=== PATIENT | male | born 1940 | race Caucasian/White ===

== ENCOUNTER 2017-07-14 15:11 | Inpatient (IN) ==
[2017-07-14] MEDS ORDERED: Lacri-Lube 3.5 GM TUBE BOTH EYES PRN (17:19)
[2017-07-14] MEDS ORDERED: *HR* Midazolam HCl 5 MG/5 ML VIAL IVP ONE ×2 (17:24→18:47)
[2017-07-14] MEDS ORDERED: *HR* FentaNYL (PF) 100 MCG/2 ML VIAL ONE (17:25)
--- NOTE | 2017-07-14 17:48 | Pulmonology History & Physical ---
<Robert Doran - Last Filed: 07/14/17 17:48> Date of Encounter: 07/14/17 Time of Encounter: 17:41 Assessment and Plan (1) Acute and chronic respiratory failure with hypercapnia Current visit: Yes Status: Acute Patient transferred from NH sedated and intubated. Patient was found to be septic. - closely monitor vitals - CMP, CBC, lactate, coag - blood, urine, and sputum cx ordered - started vanc/zosyn renal dosing - versed/fentanyl for sedation (2) Sepsis Current visit: Yes Status: Acute Patient was septic at NH. Currently patient if vitally stable. - Will closely monitor vitals, CBC, and lactate - started vanc/zosyn renal dosing Qualifiers: Qualified Code(s): A41.9 - Sepsis, unspecified organism (3) Pyelonephritis Current visit: Yes Status: Acute Multiday increase urine urgency w/o burning and difficulty emptying. Patient was possibly altered. - UA w/ cultures (4) Osteomyelitis Current visit: Yes Status: Acute chronic osteomyelitis. patient AMA from NH during treatment for MSSA. Currently wound does not appear clinically infected. - started vanc/zosyn renal dosing. Qualifiers: Qualified Code(s): M86.9 - Osteomyelitis, unspecified (5) Chronic kidney disease (CKD) Current visit: Yes Status: Acute Patient known CKD4, at NH Cr 4-5. - avoid nephrotoxins - renal dosed Rx - will closely follow Cr Qualifiers: Qualified Code(s): N18.4 - Chronic kidney disease, stage 4 (severe) (6) Obesity Current visit: Yes Status: Acute BMI >40 Qualifiers: Qualified Code(s): E66.9 - Obesity, unspecified (7) Essential hypertension Current visit: Yes Status: Acute Will closely follow BP (8) Diabetes Current visit: No Status: Acute on admission Glu 349. 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 HFpEF. currently on heparin for DVT Qualifiers: Qualified Code(s): I50.30 - Unspecified diastolic (congestive) heart failure (11) DVT prophylaxis Current visit: No Status: Acute subQ heparin History of Present Illness Chief complaint: Sepsis/ARDS HPI: Mr. Perez is a 76 year old male transferred from NH to ICU for acute on chronic respiratory failure hypercapnic with sepsis source pyelonephritis or possibly left lower leg osteomyelitis currently intubated w/ hx of acute lower urinary tract infection, mild non-proliferative diabetic retinopathy, chronic constipation, chronic osteomyelitis of lower leg, essential hypertension, COPD with a possible lung mass found at [facility], dystolic heart failure HFpEF, CKD4, obesity, Diabetes, and tremor. Patient presented to his primary care physician on 07/11/17 with increased redness and drainage from his chronic right leg wound. Patient was then admitted to NH and was started on IV antibiotics. In February patient was admitted to NH for MSSA of osteomyelitis but left AMA before finishing treatment. According to chart review, patients mental baseline is lethargic. As well, [facility] patient reports increased urine urgency without burning, and difficulty emptying. Patient has a history of difficutlly emptying and is on terazosin. According to chart review from NH, patient denied Patient is currently intubated and sedate. Unable to collect history. Past Med Surg Social Fam HX - Past Medical History Medical history: diabetes, GI bleed, hyperlipidemia, hypertension Psychiatric history: no psych history - Past Surgical History Surgical History: cholecystectomy - Social History Smoking Status: Former smoker Smokeless Tobacco Status: No Alcohol use: none Drug use: none Medications and Allergies Aspirin 81 mg PO DAILY 09/02/16 [History] Carboxymethylcellulose Sodium [Refresh Tears] 1 drop OP TID 09/02/16 [History] Cholecalciferol (D-3) [Vitamin D] 1,000 unit PO DAILY 09/02/16 [History] Cranberry 400 mg PO DAILY 09/02/16 [History] Diltiazem HCl [Diltiazem 24Hr ER] 300 mg PO DAILY 09/02/16 [History] Docusate Calcium [Kaopectate] 240 mg PO AD PRN 09/02/16 [History] Furosemide [Lasix] 20 mg PO DAILY 09/02/16 [History] Insulin ASPART [Novolog Flexpen] 24 unit SQ TIDWM 09/02/16 [History] Insulin Glargine,Hum.rec.anlog [Lantus Solostar] 30 unit SQ BID 09/02/16 [ History] Isosorbide MONOnitrate (24 HR) [Imdur] 30 mg PO DAILY 09/02/16 [History] L. Acidophilus/Pectin, Lyman [Acidophilus Probiotic Capsule] 1 cap PO BID 09/02 [History] Metoprolol XL (24 HR) Succ [Toprol Xl] 25 mg PO DAILY 09/02/16 [History] Naproxen Sodium [Aleve] 440 mg PO AD PRN 09/02/16 [History] Omeprazole [PriLOSEC] 20 mg PO DAILY 09/02/16 [History] Pravastatin Sodium [Pravachol] 40 mg PO DAILY 09/02/16 [History] Sertraline [Zoloft] 100 mg PO DAILY 09/02/16 [History] Terazosin HCl 2 mg PO DAILY 09/02/16 [History] hydrALAZINE [HydrALAZINE] 20 mg PO TID 09/02/16 [History] 3 Allergy/AdvReac Type Severity Reaction Status Date / Time gabapentin Allergy See Verified 09/02/16 11:32 Comments linezolid Allergy See Verified 09/02/16 11:32 Comments ROS unobtainable: due to endotracheal tube All Systems: A 10-system review of systems was performed and is negative for pertinent findings except as documented above in the HPI. Physical Examination General appearance: asleep Effort: other (non-labored but currently intubated) Auscultation: bilateral: wheezes Cardiovascular: irregular rhythm, murmur noted (right second intercostal space) Gastrointestinal: absent bowel sounds Extremities: no edema, other (unable to palpate pulses bilaterally radial, posterior tibial, dorsalis pedis) <Angel Diaz S - Last Filed: 07/14/17 20:20> Date of Encounter: 07/14/17 History of Present Illness HPI: Mr. Perez is a 76 year old male All Systems: A 10-system review of systems was performed and is negative for pertinent findings except as documented above in the HPI. Physical Examination Vital Signs: Vital Signs, Last 4 Hours Temp Pulse Resp BP Pulse Ox 07/14/17 19:43 20 120/70 91 07/14/17 19:00 75 20 120/70 92 07/14/17 18:00 78 20 118/71 90 07/14/17 17:31 16 93 07/14/17 17:29 78 92 07/14/17 17:05 97.2 F L 78 16 113/54 92 Results - Laboratory Findings CBC and BMP: 07/14/17 18:01 07/14/17 18:01 PT/INR, D-dimer PT 11.7 Seconds (9.4-12.1) 07/14/17 18:01 Abnormal lab findings: Abnormal lab results RBC 3.57 M/mcL (4.19-5.50) L 07/14/17 18:01 Hgb 10.1 g/dL (12.9-16.9) L 07/14/17 18:01 Hct 34.4 % (37.5-50.1) L 07/14/17 18:01 MCHC 29.4 g/dL (31.6-35.5) L 07/14/17 18:01 Neutrophils # 9.4 K/mcL (1.6-8.9) H 07/14/17 18:01 Lymphocytes # 0.2 K/mcL (0.6-4.6) L 07/14/17 18:01 Sodium 135 mEq/L (136-145) L 07/14/17 18:01 Potassium 5.6 mEq/L (3.5-4.5) H 07/14/17 18:01 BUN 39 mg/dL (8-26) H 07/14/17 18:01 Creatinine 4.69 mg/dL (0.72-1.25) H 07/14/17 18:01 Est GFR ( Amer) 15 (> 60) L 07/14/17 18:01 Est GFR (Non-Af Amer) 12 (> 60) L 07/14/17 18:01 Glucose 406 mg/dL (70-99) H 07/14/17 18:01 POC Glucose 349 (58-89) H 07/14/17 17:40 Calculated Osmolality 306 (280-300) H 07/14/17 18:01 Calcium 8.0 mg/dL (8.6-10.8) L 07/14/17 18:01 Troponin I 0.10 ng/mL (0-0.03) H* 07/14/17 18:01 Albumin 2.6 g/dL (3.5-5.0) L 07/14/17 18:01 Globulin 4.5 g/dL (2.4-3.5) H 07/14/17 18:01 Albumin/Globulin Ratio 0.6 (1.1-2.2) L 07/14/17 18:01 Urine Clarity Turbid (Clear) A 07/14/17 17:36 Urine Protein >=300 mg/dL (Neg-Trace) H 07/14/17 17:36 Urine Glucose (UA) 250 mg/dL (Normal) H 07/14/17 17:36 Urine Ketones Trace mg/dL (Negative) H 07/14/17 17:36 Urine Blood Large (Negative) H 07/14/17 17:36 Ur Leukocyte Esterase Moderate (Negative) H 07/14/17 17:36 Urine Microscopic RBC TNTC per hpf (0-3) H 07/14/17 17:36 Urine Microscopic WBC 5-15 per hpf (0-3) H 07/14/17 17:36 Ur Squamous Epith Cells Many per lpf (None-Few) H 07/14/17 17:36 Ur Culture Indicated? YES (NO) A 07/14/17 17:36 - Attending Attestation I saw the patient with the resident agree with History and Physical exam findings. Labs and Radiology were reviewed Ventilator data were reviewed adjusted TV and RR RUBBER DOWN: Patient is sedated not following commands NECK : No JVD appreciated Pulmonary : Patient is hypoxic and hypercarbic on ventilator probably due fluid overlaod vs ARDS in the setting of complicated UTI will start between 6 and 7 ml after repeat ABG will drop down to Tidal volume 6 ml low tidal volume strategy . Patient has lung nodule will address it after this acute episode . Cardiac : Hemodynamically stable , will trend troponins [facility] showed preserved EF with some dilated left atrium wont diurese now in the background of sepsis Nutrition/GI: Patient will be started on tube feeds PPI prophylaxis Renal : JAROD on chronic Kideny disease will follow electrolytes will consult renal Heme onc : Labs reviewed no acute issues . ID : Complicated UTI not improved with Zosyn concern for ESBL organisms will change to meropenem , will solano culture Endo: Diabetes on insulin Musculo skeletal / skin issues : Leg ulcer concern for osteomyelitis Disposition : Critically ill Code status: Full Code Family/POA:Son Spent 32 minutes of critical care time
[2017-07-14] MEDS ORDERED: Dextrose Gel 15 GM PO PRN ×2 (17:52)
[2017-07-14] MEDS ORDERED: D5% in Water 1,000 ML IVC PRN (17:52)
[2017-07-14] MEDS ORDERED: *HR* Dextrose 50 % in Water (Syg) 50 ML SYRINGE IVP PRN (17:52)
[2017-07-14] MEDS ORDERED: Vancomycin 1,500 MG in D5% in Water 250 ML IVPB SCH (18:00)
[2017-07-14] MEDS ORDERED: Piperacillin/Tazobactam 3.375 GM in D5% in Water (Mini-Bag+) 100 ML IVPB SCH ×2 (18:00→19:00)
[2017-07-14] MEDS ORDERED: Vancomycin 2,000 MG in D5% in Water 500 ML IVPB ONE (18:00)
[2017-07-14 18:22] LABS: Monocytes % 3.5 %
[2017-07-14 18:31] LABS: Albumin 2.6 g/dL (3.5-5.0); Albumin/Globulin Ratio 0.6 (1.1-2.2); Bilirubin,Total 0.7 mg/dL (0.2-1.2); Globulin 4.5 g/dL (2.4-3.5); Potassium 5.6 mEq/L (3.5-4.5); Total Protein 7.1 g/dL (6.0-8.3)
[2017-07-14 18:35] LABS: Basophils % 0.1 %; Hematocrit 34.4 % (37.5-50.1); Hemoglobin 10.1 g/dL (12.9-16.9); INR 1.1; Immature Granulocytes % 0.4 % (0-4); Lymphocytes # 0.2 K/mcL (0.6-4.6); Mean Corpuscular HGB Conc 29.4 g/dL (31.6-35.5); Mean Corpuscular Hemoglobin 28.3 pg (28.0-33.3); Mean Corpuscular Volume 96.4 fL (83.0-100.0); Mean Platelet Volume 10.7 fL (9.4-12.4); Monocytes # 0.4 K/mcL (0.0-1.3); Neutrophils # 9.4 K/mcL (1.6-8.9); Platelet Count 166 K/mcL (140-400); Prothrombin Time 11.7 Seconds (9.4-12.1); Red Blood Count 3.57 M/mcL (4.19-5.50); Red Cell Distribution Width 14.2 % (11.5-14.5)
[2017-07-14] MEDS ORDERED: *HR* FentaNYL (PF) 100 MCG/2 ML VIAL IVP ONE (18:47)
[2017-07-14] MEDS: FentaNYL (PF) 1,000 MCG in 0.9 % Sodium Chloride 80 ML IVC SCH (18:49)
[2017-07-14] MEDS: Insulin LISPRO 300 UNITS/3 ML VIAL SQ SCH (18:58)
[2017-07-14 19:23] LABS: Bilirubin,Urine Negative (Negative); Blood,Urine Large (Negative); Clarity,Urine Turbid (Clear); Color,Urine Yellow (Yellow); Glucose,Urine (UA) 250 mg/dL (Normal); Ketones,Urine Trace mg/dL (Negative); Leukocyte Esterase,Urine Moderate (Negative); Nitrite,Urine Negative (Negative); Protein,Urine >=300 mg/dL (Neg-Trace); Specific Gravity,Urine 1.022 (1.010-1.025); Urobilinogen,Urine Normal (Normal)
[2017-07-14 19:26] LABS: RBC,Urine TNTC per hpf (0-3); Squamous Epithelial Cell,Urine Many per lpf (None-Few)
[2017-07-14 19:28] LABS: Bacteria,Urine Few per hpf (None-Few)
[2017-07-14] MEDS: Ipratropium/Albuterol Neb 3 ML IH SCH (19:43)
[2017-07-14] MEDS: Chlorhexidine Rinse 15 ML MOUTHWASH MM SCH (20:37)
[2017-07-14] MEDS: Meropenem 500 MG in 0.9 % Sodium Chloride Mini Bag 100 ML IVPB SCH (20:37)
[2017-07-14] MEDS: Lacri-Lube 3.5 GM TUBE BOTH EYES SCH (20:37)
[2017-07-14] MEDS: *HR* Heparin 5,000 UNIT/ML VIAL SQ SCH (21:06)
[2017-07-14 22:25] LABS: ABG Base Excess 2.7 mEq/L (-2.0 to 3.0); ABG HCO3 28 mEq/L (21-27); ABG Oxygen Saturation 95 % (95-98); ABG PCO2 48 mmHg (35-45); ABG PH 7.38 pH Units (7.32-7.45); ABG PO2 77 mmHg (85-104); ABG TCO2 30 mEq/L (20-26)
[2017-07-14 22:26] LABS: Blood Gas Modality VCT
[2017-07-15] MEDS: Insulin LISPRO 300 UNITS/3 ML VIAL SQ SCH ×5 (00:43→19:52)
[2017-07-15] MEDS: Lacri-Lube 3.5 GM TUBE BOTH EYES SCH ×6 (00:43→19:51)
[2017-07-15] MEDS: Ipratropium/Albuterol Neb 3 ML IH SCH ×7 (00:47→23:33)
[2017-07-15 04:38] LABS: ABG Base Excess 5.3 mEq/L (-2.0 to 3.0); ABG HCO3 31 mEq/L (21-27); ABG Oxygen Saturation 92 % (95-98); ABG PCO2 50 mmHg (35-45); ABG PO2 63 mmHg (85-104); ABG TCO2 33 mEq/L (20-26)
[2017-07-15 04:39] LABS: Blood Gas Modality VCT
[2017-07-15] MEDS: FentaNYL (PF) 1,000 MCG in 0.9 % Sodium Chloride 80 ML IVC SCH ×3 (05:02→19:48)
[2017-07-15] MEDS: *HR* Heparin 5,000 UNIT/ML VIAL SQ SCH ×3 (05:27→21:10)
[2017-07-15] MEDS: Meropenem 500 MG in 0.9 % Sodium Chloride Mini Bag 100 ML IVPB SCH ×2 (05:28→18:29)
[2017-07-15] MEDS ORDERED: MethylPREDNISolone 40 MG/ML VIAL IVP SCH (06:00)
--- NOTE | 2017-07-15 06:33 | Pulmonology Progress Note ---
<Robert Doran - Last Filed: 07/15/17 10:58> Date of Encounter: 07/15/17 Time of Encounter: 06:33 Assessment and Plan (1) Acute and chronic respiratory failure with hypercapnia Current Visit: Yes Status: Acute Patient transferred from [place] sedated and intubated. Patient was found to be septic. - closely monitor vitals - CMP, CBC, lactate, coag - blood, urine, and sputum cx ordered - started vanc/zosyn renal dosing - versed/fentanyl for sedation - abx: vancomycin, zosyn, meropenum renal dose (2) Sepsis Current Visit: Yes Status: Acute Patient was septic at [place]. Currently patient is vitally stable. - Will closely monitor vitals, CBC, and lactate - started vanc/zosyn/meropenem renal dosing Qualifiers: Qualified Code(s): A41.9 - Sepsis, unspecified organism (3) Pyelonephritis Current Visit: Yes Status: Acute Multiday increase urine urgency w/o burning and difficulty emptying. Patient was possibly altered. - UA w/ cultures pending - broad spectrum coverage (4) Osteomyelitis Current Visit: Yes Status: Acute chronic osteomyelitis. patient AMA from [place] during treatment for MSSA. Currently wound does not appear clinically infected. - started vanc/zosyn renal dosing. Qualifiers: Qualified Code(s): M86.9 - Osteomyelitis, unspecified (5) Chronic kidney disease (CKD) Current Visit: Yes Status: Acute Patient known CKD4, at [place] Cr 4-5. today Cr - avoid nephrotoxins - renal dosed Rx - will closely follow Cr Qualifiers: Qualified Code(s): N18.9 - Chronic kidney disease, unspecified (6) Obesity Current Visit: Yes Status: Acute BMI >40 Qualifiers: Qualified Code(s): E66.9 - Obesity, unspecified (7) Essential hypertension Current Visit: Yes Status: Acute Will closely follow BP (8) Diabetes Current Visit: No Status: Acute on admission Glu 349. - continue high SSI Qualifiers: Diabetes mellitus type: type 2 Diabetes mellitus complication status: without complication Diabetes mellitus intermission coordinator insulin use: with intermission coordinator use Qualified Code(s): E11.9 - Type 2 diabetes mellitus without complications ; Z79.4 - FPC (current) use of insulin (9) Essential tremor Current Visit: No Status: Acute Previous dx, will closely monitor (10) Diastolic CHF Current Visit: Yes Status: Acute echo performed at [place] reported normal ejection fraction. HFpEF. currently on heparin for DVT Qualifiers: Qualified Code(s): I50.30 - Unspecified diastolic (congestive) heart failure (11) DVT prophylaxis Current Visit: No Status: Acute subQ heparin (12) Hyperkalemia Current Visit: Yes Status: Acute K+ 5.6 on 07/14 - 10 units IV insulin given - Kayexelate given - closely follow K+ Subjective Principal diagnosis: Acute + Chronic Respiratory Failure Interval history: Mr. Perez is a 76 year old male transferred from [place] to ICU for acute on chronic respiratory failure hypercapnic with sepsis source pyelonephritis or possibly left lower leg osteomyelitis currently intubated w/ hx of acute lower urinary tract infection, mild non-proliferative diabetic retinopathy, chronic constipation, chronic osteomyelitis of lower leg, essential hypertension, COPD with a possible lung mass found at [facility], dystolic heart failure HFpEF, CKD4, obesity, Diabetes, and tremor. Patient seen today with two sons. eldest son, Edgard Mittal [phone], is PoA and will have paperwork faxed in. No acute events overnight, patient remains sedated and intubated. Objective PUL Vital signs: Last Vital Signs Temp 98.4 F 07/15/17 05:08 Pulse 79 07/15/17 06:00 Resp 20 07/15/17 06:17 BP 144/81 07/15/17 06:17 Pulse Ox 94 07/15/17 06:17 General appearance: no acute distress, asleep Auscultation: bilateral: wheezes (on mech vent) Cardiovascular: regular rate and rhythm Gastrointestinal: absent bowel sounds Extremities: edema (1/4 lower extremities bilaterally) unable to assess due to mental status Ventilator Settings Ventilator Settings: Ventilator Settings, Last 8 Hours Ventilator Mode VC+ Ventilator Mode VC+ Ventilator Mode VC+ Ventilator Mode VC+ Ventilator Mode VC+ Ventilator Mode VC+ Ventilator Mode VC+ Ventilator Mode VC+ Ventilator Mode VC+ Ventilator Mode VC+ Ventilator Mode VC+ Ventilator Mode VC+ Ventilator Mode VC+ Ventilator Tidal Volume 500 Setting Ventilator Tidal Volume 500 Setting Ventilator Tidal Volume 500 Setting Ventilator Tidal Volume 500 Setting Ventilator Tidal Volume 500 Setting Ventilator Tidal Volume 500 Setting Ventilator Tidal Volume 500 Setting Ventilator Tidal Volume 500 Setting Ventilator Tidal Volume 500 Setting Ventilator Tidal Volume 500 Setting Ventilator Tidal Volume 500 Setting Ventilator Tidal Volume 500 Setting Ventilator Tidal Volume 500 Setting Ventilator Respiratory Rate 20 Setting Ventilator Respiratory Rate 20 Setting Ventilator Respiratory Rate 20 Setting Ventilator Respiratory Rate 20 Setting Ventilator Respiratory Rate 20 Setting Ventilator Respiratory Rate 20 Setting Ventilator Respiratory Rate 20 Setting Ventilator Respiratory Rate 20 Setting Ventilator Respiratory Rate 20 Setting Ventilator Respiratory Rate 20 Setting Ventilator Respiratory Rate 20 Setting Ventilator Respiratory Rate 20 Setting Ventilator Respiratory Rate 20 Setting Actual Respiratory Rate 20 Actual Respiratory Rate 20 Actual Respiratory Rate 20 Actual Respiratory Rate 20 Actual Respiratory Rate 20 Actual Respiratory Rate 20 Actual Respiratory Rate 20 Actual Respiratory Rate 20 Actual Respiratory Rate 20 Actual Respiratory Rate 20 Actual Respiratory Rate 20 Actual Respiratory Rate 20 Positive End Expiratory 8 Pressure Positive End Expiratory 8 Pressure Positive End Expiratory 8 Pressure Positive End Expiratory 8 Pressure Positive End Expiratory 8 Pressure Positive End Expiratory 8 Pressure Positive End Expiratory 8 Pressure Positive End Expiratory 8 Pressure Positive End Expiratory 8 Pressure Positive End Expiratory 8 Pressure Positive End Expiratory 8 Pressure Positive End Expiratory 8 Pressure Positive End Expiratory 8 Pressure Peak Inspiratory Airway 31 Pressure Peak Inspiratory Airway 32 Pressure Peak Inspiratory Airway 29 Pressure Peak Inspiratory Airway 31 Pressure Peak Inspiratory Airway 31 Pressure Peak Inspiratory Airway 31 Pressure Peak Inspiratory Airway 32 Pressure Peak Inspiratory Airway 26 Pressure Peak Inspiratory Airway 26 Pressure Peak Inspiratory Airway 37 Pressure Peak Inspiratory Airway 35 Pressure Peak Inspiratory Airway 36 Pressure Results - Laboratory Findings CBC and BMP: 07/15/17 Unknown 07/15/17 08:59 ABG ABG pH 7.40 pH Units (7.32-7.45) 07/15/17 04:26 ABG pCO2 50 mmHg (35-45) H 07/15/17 04:26 ABG pO2 63 mmHg (85-104) L 07/15/17 04:26 ABG O2 Saturation 92 % (95-98) L 07/15/17 04:26 PT/INR, D-dimer PT 11.7 Seconds (9.4-12.1) 07/14/17 18:01 Abnormal lab findings: Abnormal lab results RBC 3.57 M/mcL (4.19-5.50) L 07/14/17 18:01 Hgb 10.1 g/dL (12.9-16.9) L 07/14/17 18:01 Hct 34.4 % (37.5-50.1) L 07/14/17 18:01 MCHC 29.4 g/dL (31.6-35.5) L 07/14/17 18:01 Neutrophils # 9.4 K/mcL (1.6-8.9) H 07/14/17 18:01 Lymphocytes # 0.2 K/mcL (0.6-4.6) L 07/14/17 18:01 ABG pCO2 50 mmHg (35-45) H 07/15/17 04:26 ABG pO2 63 mmHg (85-104) L 07/15/17 04:26 ABG HCO3 31 mEq/L (21-27) H 07/15/17 04:26 ABG Total CO2 33 mEq/L (20-26) H 07/15/17 04:26 ABG O2 Saturation 92 % (95-98) L 07/15/17 04:26 ABG Base Excess 5.3 mEq/L (-2.0 to 3.0) H 07/15/17 04:26 Sodium 135 mEq/L (136-145) L 07/14/17 18:01 Potassium 5.6 mEq/L (3.5-4.5) H 07/14/17 18:01 BUN 39 mg/dL (8-26) H 07/14/17 18:01 Creatinine 4.69 mg/dL (0.72-1.25) H 07/14/17 18:01 Est GFR ( Amer) 15 (> 60) L 07/14/17 18:01 Est GFR (Non-Af Amer) 12 (> 60) L 07/14/17 18:01 Glucose 406 mg/dL (70-99) H 07/14/17 18:01 POC Glucose 330 (58-89) H 07/15/17 04:59 Calculated Osmolality 306 (280-300) H 07/14/17 18:01 Calcium 8.0 mg/dL (8.6-10.8) L 07/14/17 18:01 Troponin I 0.29 ng/mL (0-0.03) H* 07/15/17 02:20 Albumin 2.6 g/dL (3.5-5.0) L 07/14/17 18:01 Globulin 4.5 g/dL (2.4-3.5) H 07/14/17 18:01 Albumin/Globulin Ratio 0.6 (1.1-2.2) L 07/14/17 18:01 Urine Clarity Turbid (Clear) A 07/14/17 17:36 Urine Protein >=300 mg/dL (Neg-Trace) H 07/14/17 17:36 Urine Glucose (UA) 250 mg/dL (Normal) H 07/14/17 17:36 Urine Ketones Trace mg/dL (Negative) H 07/14/17 17:36 Urine Blood Large (Negative) H 07/14/17 17:36 Ur Leukocyte Esterase Moderate (Negative) H 07/14/17 17:36 Urine Microscopic RBC TNTC per hpf (0-3) H 07/14/17 17:36 Urine Microscopic WBC 5-15 per hpf (0-3) H 07/14/17 17:36 Ur Squamous Epith Cells Many per lpf (None-Few) H 07/14/17 17:36 Ur Culture Indicated? YES (NO) A 07/14/17 17:36 - Microbiology Findings Microbiology Findings: Microbiology, Last 48 Hours 07/14/17 17:36 Sputum Culture - Final Sputum - Clinical Findings Intake & Output: Intake & Output 07/14/17 07/14/17 07/15/17 15:59 23:59 07:59 Intake Total 600 / 600 100 / 100 Output Total 100 / 100 550 / 550 Balance 500 / 500 -450 / -450 Weight 142.2 kg 139.706 kg Consult Discharge Plan - Plan Referrals: Kacey Salazar [Primary Care Provider] - <Angel Diaz - Last Filed: 07/15/17 14:48> Date of Encounter: 07/15/17 Objective PUL Vital signs: Last Vital Signs Temp 98.3 F 07/15/17 12:00 Pulse 77 07/15/17 13:00 Resp 20 07/15/17 13:28 BP 141/75 07/15/17 13:28 Pulse Ox 93 07/15/17 13:28 Ventilator Settings Ventilator Settings: Ventilator Settings, Last 8 Hours Ventilator Mode VC+ Ventilator Mode VC+ Ventilator Mode VC+ Ventilator Mode VC+ Ventilator Mode VC+ Ventilator Mode VC+ Ventilator Mode VC+ Ventilator Mode VC+ Ventilator Mode VC+ Ventilator Mode VC+ Ventilator Tidal Volume 500 Setting Ventilator Tidal Volume 500 Setting Ventilator Tidal Volume 500 Setting Ventilator Tidal Volume 500 Setting Ventilator Tidal Volume 500 Setting Ventilator Tidal Volume 500 Setting Ventilator Tidal Volume 500 Setting Ventilator Tidal Volume 500 Setting Ventilator Tidal Volume 470 Setting Ventilator Tidal Volume 500 Setting Ventilator Respiratory Rate 20 Setting Ventilator Respiratory Rate 20 Setting Ventilator Respiratory Rate 20 Setting Ventilator Respiratory Rate 20 Setting Ventilator Respiratory Rate 20 Setting Ventilator Respiratory Rate 20 Setting Ventilator Respiratory Rate 20 Setting Ventilator Respiratory Rate 20 Setting Ventilator Respiratory Rate 20 Setting Ventilator Respiratory Rate 20 Setting Actual Respiratory Rate 20 Actual Respiratory Rate 20 Actual Respiratory Rate 20 Actual Respiratory Rate 20 Actual Respiratory Rate 20 Actual Respiratory Rate 20 Actual Respiratory Rate 20 Actual Respiratory Rate 20 Actual Respiratory Rate 20 Actual Respiratory Rate 20 Positive End Expiratory 8 Pressure Positive End Expiratory 8 Pressure Positive End Expiratory 8 Pressure Positive End Expiratory 8 Pressure Positive End Expiratory 8 Pressure Positive End Expiratory 8 Pressure Positive End Expiratory 8 Pressure Positive End Expiratory 8 Pressure Positive End Expiratory 8 Pressure Positive End Expiratory 8 Pressure Peak Inspiratory Airway 32 Pressure Peak Inspiratory Airway 32 Pressure Peak Inspiratory Airway 32 Pressure Peak Inspiratory Airway 32 Pressure Peak Inspiratory Airway 31 Pressure Peak Inspiratory Airway 31 Pressure Peak Inspiratory Airway 31 Pressure Peak Inspiratory Airway 31 Pressure Peak Inspiratory Airway 28 Pressure Peak Inspiratory Airway 31 Pressure Results - Laboratory Findings CBC and BMP: 07/15/17 Unknown 07/15/17 08:59 ABG ABG pH 7.40 pH Units (7.32-7.45) 07/15/17 04:26 ABG pCO2 50 mmHg (35-45) H 07/15/17 04:26 ABG pO2 63 mmHg (85-104) L 07/15/17 04:26 ABG O2 Saturation 92 % (95-98) L 07/15/17 04:26 PT/INR, D-dimer PT 11.7 Seconds (9.4-12.1) 07/14/17 18:01 Abnormal lab findings: Abnormal lab results RBC 3.50 M/mcL (4.19-5.50) L 07/15/17 Unknown Hgb 9.9 g/dL (12.9-16.9) L 07/15/17 Unknown Hct 31.1 % (37.5-50.1) L 07/15/17 Unknown Lymphocytes # 0.4 K/mcL (0.6-4.6) L 07/15/17 Unknown ABG pCO2 50 mmHg (35-45) H 07/15/17 04:26 ABG pO2 63 mmHg (85-104) L 07/15/17 04:26 ABG HCO3 31 mEq/L (21-27) H 07/15/17 04:26 ABG Total CO2 33 mEq/L (20-26) H 07/15/17 04:26 ABG O2 Saturation 92 % (95-98) L 07/15/17 04:26 ABG Base Excess 5.3 mEq/L (-2.0 to 3.0) H 07/15/17 04:26 Potassium 5.0 mEq/L (3.5-4.5) H 07/15/17 08:59 BUN 47 mg/dL (8-26) H 07/15/17 08:59 Creatinine 4.92 mg/dL (0.72-1.25) H 07/15/17 08:59 Est GFR ( Amer) 14 (> 60) L 07/15/17 08:59 Est GFR (Non-Af Amer) 12 (> 60) L 07/15/17 08:59 Glucose 283 mg/dL (70-99) H 07/15/17 08:59 POC Glucose 249 (58-89) H 07/15/17 11:29 Calculated Osmolality 305 (280-300) H 07/15/17 08:59 Calcium 8.2 mg/dL (8.6-10.8) L 07/15/17 08:59 Troponin I 0.33 ng/mL (0-0.03) H* 07/15/17 08:59 Albumin 2.6 g/dL (3.5-5.0) L 07/14/17 18:01 Globulin 4.5 g/dL (2.4-3.5) H 07/14/17 18:01 Albumin/Globulin Ratio 0.6 (1.1-2.2) L 07/14/17 18:01 Urine Clarity Turbid (Clear) A 07/14/17 17:36 Urine Protein >=300 mg/dL (Neg-Trace) H 07/14/17 17:36 Urine Glucose (UA) 250 mg/dL (Normal) H 07/14/17 17:36 Urine Ketones Trace mg/dL (Negative) H 07/14/17 17:36 Urine Blood Large (Negative) H 07/14/17 17:36 Ur Leukocyte Esterase Moderate (Negative) H 07/14/17 17:36 Urine Microscopic RBC TNTC per hpf (0-3) H 07/14/17 17:36 Urine Microscopic WBC 5-15 per hpf (0-3) H 07/14/17 17:36 Ur Squamous Epith Cells Many per lpf (None-Few) H 07/14/17 17:36 Ur Culture Indicated? YES (NO) A 07/14/17 17:36 - Microbiology Findings Microbiology Findings: Microbiology, Last 48 Hours 07/14/17 17:36 Sputum Culture - Final Sputum - Clinical Findings Intake & Output: Intake & Output 07/14/17 07/15/17 07/15/17 23:59 07:59 15:59 Intake Total 600 / 600 300 / 300 100 / 100 Output Total 100 / 100 650 / 650 425 / 425 Balance 500 / 500 -350 / -350 -325 / -325 Weight 142.2 kg 139.706 kg - Attending Attestation I saw the patient with the resident agree with History and Physical exam findings. Labs and Radiology were reviewed Ventilator data were reviewed adjusted TV and RR TOOTH GRINDER: Patient is sedated not following commands but when he is off sedation he is awake but not following commands NECK : No JVD appreciated Pulmonary : CXR and P/F ratio less than 90 latest gas point towards ARDS secondary to complicated UTI Cardiac : Hemodynamically stable , will trend troponins ECHO which was done in [place] showed preserved EF with some dilated left atrium wont diurese now in the background of sepsis will get BNP Nutrition/GI: Patient started on tube feeds PPI prophylaxis Renal : JAROD on chronic Kideny disease will follow electrolytes according to patient wishes wont agree with aggressive measures like dialysis will do supportive care urine output improving Heme onc : Labs reviewed eleavated renal function potassium is trending down ID : Complicated UTI not improved with Zosyn concern for ESBL organisms will change to meropenem , will solano culture Endo: Diabetes on insulin Musculo skeletal / skin issues : Leg ulcer has chronic osteomyelitis Disposition : Critically ill Code status: Spoke with two sons who drove from [place] according to patient wishes he wouldnt pursue aggressive measures it was decided will continue current therapy if his blood pressure worsens or kidney function worsen wont pursue with central line access or dialysis will change code status to DNRCCA Family/POA:Son Spent 35 minutes of Critical care time .
[2017-07-15] MEDS ORDERED: Insulin Human Regular 10 UNIT in 0.9 % Sodium Chloride 10 ML IV ONE (07:34)
[2017-07-15] MEDS: Furosemide 40 MG/4 ML VIAL IVP SCH (08:05)
[2017-07-15] MEDS: Chlorhexidine Rinse 15 ML MOUTHWASH MM SCH ×2 (08:05→21:10)
[2017-07-15] MEDS: Pantoprazole 40 MG VIAL IVP SCH (08:06)
[2017-07-15 09:25] LABS: Calcium 8.2 mg/dL (8.6-10.8)
[2017-07-15 10:10] LABS: Basophils % 0.1 %; Hematocrit 31.1 % (37.5-50.1); Hemoglobin 9.9 g/dL (12.9-16.9); Immature Granulocytes % 0.9 % (0-4); Immature Platelets 6.1 % (1.1-6.1); Lymphocytes # 0.4 K/mcL (0.6-4.6); Lymphocytes % 4.5 %; Mean Corpuscular HGB Conc 31.8 g/dL (31.6-35.5); Mean Corpuscular Hemoglobin 28.3 pg (28.0-33.3); Mean Corpuscular Volume 88.9 fL (83.0-100.0); Mean Platelet Volume 11.7 fL (9.4-12.4); Monocytes # 0.4 K/mcL (0.0-1.3); Monocytes % 3.9 %; Neutrophils # 8.8 K/mcL (1.6-8.9); Platelet Count 167 K/mcL (140-400); Red Cell Distribution Width 14.1 % (11.5-14.5); Segmented Neutrophils % 90.6 %
[2017-07-15] MEDS ORDERED: 0.9 % Sodium Chloride 1,000 ML IVC ONE (11:01)
[2017-07-15] MEDS ORDERED: Insulin DETEMIR 100 UNIT/ML X5UNITS SQ SCH ×2 (11:15→21:00)
[2017-07-15] MEDS ORDERED: Insulin DETEMIR 100 UNIT/ML X5UNITS SQ ONE (12:15)
[2017-07-16] MEDS: Lacri-Lube 3.5 GM TUBE BOTH EYES SCH ×6 (00:16→20:03)
[2017-07-16] MEDS: Insulin LISPRO 300 UNITS/3 ML VIAL SQ SCH ×6 (00:16→20:03)
[2017-07-16] MEDS: FentaNYL (PF) 1,000 MCG in 0.9 % Sodium Chloride 80 ML IVC SCH ×5 (01:00→23:35)
[2017-07-16 02:31] LABS: Hemoglobin 9.7 g/dL (12.9-16.9); Immature Granulocytes % 0.8 % (0-4); Lymphocytes # 0.3 K/mcL (0.6-4.6); Lymphocytes % 2.9 %; Mean Corpuscular HGB Conc 30.3 g/dL (31.6-35.5); Mean Corpuscular Hemoglobin 27.4 pg (28.0-33.3); Mean Corpuscular Volume 90.4 fL (83.0-100.0); Monocytes # 0.5 K/mcL (0.0-1.3); Monocytes % 4.3 %; Neutrophils # 10.3 K/mcL (1.6-8.9); Platelet Count 201 K/mcL (140-400); Red Blood Count 3.54 M/mcL (4.19-5.50); Red Cell Distribution Width 14.5 % (11.5-14.5)
[2017-07-16] MEDS: Ipratropium/Albuterol Neb 3 ML IH SCH ×6 (03:10→23:31)
[2017-07-16 04:18] LABS: ABG Base Excess 1.7 mEq/L (-2.0 to 3.0); ABG HCO3 28 mEq/L (21-27); ABG Oxygen Saturation 89 % (95-98); ABG PCO2 49 mmHg (35-45); ABG PH 7.36 pH Units (7.32-7.45); ABG PO2 58 mmHg (85-104); ABG TCO2 29 mEq/L (20-26)
[2017-07-16 04:20] LABS: Blood Gas Modality VC+
[2017-07-16] MEDS: *HR* Heparin 5,000 UNIT/ML VIAL SQ SCH ×3 (05:41→21:34)
[2017-07-16] MEDS: Meropenem 500 MG in 0.9 % Sodium Chloride Mini Bag 100 ML IVPB SCH ×2 (05:42→17:54)
--- NOTE | 2017-07-16 08:27 | Pulmonology Progress Note ---
Addendum entered and electronically signed by Fredis Qiu DO 07/16/17 10:54: Dr. Lee from the OR contacted us with negative culture results Original Note: <Fredis Qiu - Last Filed: 07/16/17 09:40> Date of Encounter: 07/16/17 Time of Encounter: 08:24 Assessment and Plan (1) Acute and chronic respiratory failure with hypercapnia Current Visit: Yes Status: Acute Ventilated 20/min, 60% FiO2 Sputum showed MSSA Urine negative Blood negative thus far On Vanc On Meropenem for suspected ESBL E. coli at OR (2) Sepsis Current Visit: Yes Status: Acute Septic at OR VSS Monitor vitals, CBC, lactate On Vanc, meropenem Qualifiers: Qualified Code(s): A41.9 - Sepsis, unspecified organism (3) Diastolic CHF Current Visit: Yes Status: Acute Holding lasix today due to low urine output Qualifiers: Congestive heart failure chronicity: acute on chronic Qualified Code(s): I50.33 - Acute on chronic diastolic (congestive) heart failure (4) Chronic kidney disease (CKD) Current Visit: Yes Status: Acute Cr rising, 5.73 today, up from 4.92 Will monitor urine closely Output 325 so far today 0.3 ml/kg Avoid nephrotoxins Holding lasix today Giving 0.5 L bolus normal saline, may give additional 0.5 L if no improvement in output Qualifiers: Chronic kidney disease stage: unspecified stage Qualified Code(s): N18.9 - Chronic kidney disease, unspecified (5) Osteomyelitis Current Visit: Yes Status: Acute Patient signed out AMA from OR See plan of care above Qualifiers: Osteomyelitis type: unspecified type Osteomyelitis location: unspecified site Qualified Code(s): M86.9 - Osteomyelitis, unspecified (6) Diabetes Current Visit: Yes Status: Acute Blood sugars poorly controlled since admission. Increased Levemir to home dose of 42 Units BID. 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 Qualified Code(s): E11.9 - Type 2 diabetes mellitus without complications ; Z79.4 - equipment operator intermodal yard (current) use of insulin; Z79.4 - equipment operator intermodal yard (current) use of insulin; Z79.4 - skilled nursing (current) use of insulin; Z79.4 - skilled nursing ( current) use of insulin (7) Chronic wound of extremity Current Visit: Yes Status: Acute Distal RLE underlying chronic osteomyelitis Continue IV abx (8) Hyperkalemia Current Visit: Yes Status: Acute Stable at 5.0 x 2 days Given Kayexalate Continue to monitor (9) Essential hypertension Current Visit: Yes Status: Acute Pressure range of 110-144/58-67 so far today Monitor On lasix (10) Essential tremor Current Visit: Yes Status: Acute Stable (11) Obesity Current Visit: Yes Status: Acute BMI >40 Qualifiers: Obesity type: due to excess calories Obesity classification: adult class 3 (BMI >= 40) Serious obesity comorbidity presence: with serious comorbidity Body mass index: BMI 40.0-44.9 Qualified Code(s): E66.09 - Other obesity due to excess calories; Z68.41 - Body mass index (BMI) 40.0-44.9, adult; Z68.41 - Body mass index (BMI) 40.0-44.9, adult; Z68.41 - Body mass index (BMI) 40.0-44.9 , adult; Z68.41 - Body mass index (BMI) 40.0-44.9, adult (12) DVT prophylaxis Current Visit: Yes Status: Acute Continue heparin subq Subjective Principal diagnosis: Acute + Chronic Respiratory Failure Interval history: No significant overnight events. Patient opens eyes, intermittently responds to questions, but does not follow commands. Objective PUL Vital signs: Last Vital Signs Temp 98.6 F 07/16/17 07:35 Pulse 73 07/16/17 08:00 Resp 20 07/16/17 08:00 BP 137/73 07/16/17 08:00 Pulse Ox 94 07/16/17 08:00 General appearance: no acute distress, other (essential tremor) Eyes: nonicteric Effort: other (ventilated) Auscultation: bilateral: wheezes Cardiovascular: regular rate and rhythm Gastrointestinal: soft, non-tender Integumentary: other (wound on distal RLE, chronic osteomyelitis) Extremities: edema (to mid-blanchard b/l) unable to assess due to mental status Ventilator Settings Ventilator Settings: Ventilator Settings, Last 8 Hours Ventilator Mode VC+ Ventilator Mode VC+ Ventilator Mode VC+ Ventilator Mode VC+ Ventilator Mode VC+ Ventilator Mode VC+ Ventilator Mode VC+ Ventilator Mode VC+ Ventilator Mode VC+ Ventilator Tidal Volume 470 Setting Ventilator Tidal Volume 470 Setting Ventilator Tidal Volume 470 Setting Ventilator Tidal Volume 470 Setting Ventilator Tidal Volume 470 Setting Ventilator Tidal Volume 470 Setting Ventilator Tidal Volume 470 Setting Ventilator Tidal Volume 470 Setting Ventilator Tidal Volume 470 Setting Ventilator Tidal Volume 500 Setting Ventilator Respiratory Rate 20 Setting Ventilator Respiratory Rate 20 Setting Ventilator Respiratory Rate 20 Setting Ventilator Respiratory Rate 20 Setting Ventilator Respiratory Rate 20 Setting Ventilator Respiratory Rate 20 Setting Ventilator Respiratory Rate 20 Setting Ventilator Respiratory Rate 20 Setting Ventilator Respiratory Rate 20 Setting Ventilator Respiratory Rate 20 Setting Actual Respiratory Rate 20 Actual Respiratory Rate 20 Actual Respiratory Rate 19 Actual Respiratory Rate 20 Actual Respiratory Rate 20 Actual Respiratory Rate 20 Actual Respiratory Rate 20 Actual Respiratory Rate 20 Actual Respiratory Rate 20 Actual Respiratory Rate 20 Positive End Expiratory 8 Pressure Positive End Expiratory 8 Pressure Positive End Expiratory 8 Pressure Positive End Expiratory 8 Pressure Positive End Expiratory 8 Pressure Positive End Expiratory 8 Pressure Positive End Expiratory 8 Pressure Positive End Expiratory 8 Pressure Positive End Expiratory 8 Pressure Positive End Expiratory 8 Pressure Positive End Expiratory 8 Pressure Peak Inspiratory Airway 36 Pressure Peak Inspiratory Airway 28 Pressure Peak Inspiratory Airway 29 Pressure Peak Inspiratory Airway 28 Pressure Peak Inspiratory Airway 29 Pressure Peak Inspiratory Airway 28 Pressure Peak Inspiratory Airway 28 Pressure Peak Inspiratory Airway 29 Pressure Peak Inspiratory Airway 29 Pressure Results - Laboratory Findings CBC and BMP: 07/16/17 02:22 07/16/17 02:22 ABG ABG pH 7.36 pH Units (7.32-7.45) 07/16/17 04:07 ABG pCO2 49 mmHg (35-45) H 07/16/17 04:07 ABG pO2 58 mmHg (85-104) L 07/16/17 04:07 ABG O2 Saturation 89 % (95-98) L 07/16/17 04:07 PT/INR, D-dimer PT 11.7 Seconds (9.4-12.1) 07/14/17 18:01 Abnormal lab findings: Abnormal lab results RBC 3.54 M/mcL (4.19-5.50) L 07/16/17 02:22 Hgb 9.7 g/dL (12.9-16.9) L 07/16/17 02:22 Hct 32.0 % (37.5-50.1) L 07/16/17 02:22 MCH 27.4 pg (28.0-33.3) L 07/16/17 02:22 MCHC 30.3 g/dL (31.6-35.5) L 07/16/17 02:22 Neutrophils # 10.3 K/mcL (1.6-8.9) H 07/16/17 02:22 Lymphocytes # 0.3 K/mcL (0.6-4.6) L 07/16/17 02:22 ABG pCO2 49 mmHg (35-45) H 07/16/17 04:07 ABG pO2 58 mmHg (85-104) L 07/16/17 04:07 ABG HCO3 28 mEq/L (21-27) H 07/16/17 04:07 ABG Total CO2 29 mEq/L (20-26) H 07/16/17 04:07 ABG O2 Saturation 89 % (95-98) L 07/16/17 04:07 Potassium 5.0 mEq/L (3.5-4.5) H 07/16/17 02:22 BUN 64 mg/dL (8-26) H D 07/16/17 02:22 Creatinine 5.73 mg/dL (0.72-1.25) H 07/16/17 02:22 Est GFR ( Amer) 12 (> 60) L 07/16/17 02:22 Est GFR (Non-Af Amer) 10 (> 60) L 07/16/17 02:22 Glucose 255 mg/dL (70-99) H 07/16/17 02:22 POC Glucose 262 (58-89) H 07/16/17 07:20 Calculated Osmolality 309 (280-300) H 07/16/17 02:22 Calcium 8.0 mg/dL (8.6-10.8) L 07/16/17 02:22 Troponin I 0.33 ng/mL (0-0.03) H* 07/15/17 08:59 Albumin 2.6 g/dL (3.5-5.0) L 07/14/17 18:01 Globulin 4.5 g/dL (2.4-3.5) H 07/14/17 18:01 Albumin/Globulin Ratio 0.6 (1.1-2.2) L 07/14/17 18:01 Urine Clarity Turbid (Clear) A 07/14/17 17:36 Urine Protein >=300 mg/dL (Neg-Trace) H 07/14/17 17:36 Urine Glucose (UA) 250 mg/dL (Normal) H 07/14/17 17:36 Urine Ketones Trace mg/dL (Negative) H 07/14/17 17:36 Urine Blood Large (Negative) H 07/14/17 17:36 Ur Leukocyte Esterase Moderate (Negative) H 07/14/17 17:36 Urine Microscopic RBC TNTC per hpf (0-3) H 07/14/17 17:36 Urine Microscopic WBC 5-15 per hpf (0-3) H 07/14/17 17:36 Ur Squamous Epith Cells Many per lpf (None-Few) H 07/14/17 17:36 Ur Culture Indicated? YES (NO) A 07/14/17 17:36 - Microbiology Findings Microbiology Findings: Microbiology, Last 48 Hours 07/14/17 17:36 Urine Culture - Final Urine,Clean Catch No pathogens isolated. 07/14/17 17:36 Sputum Culture - Final Sputum - Diagnostic Findings Chest x-ray: report reviewed, image reviewed - Clinical Findings Intake & Output: Intake & Output 07/15/17 07/16/17 07/16/17 23:59 07:59 15:59 Intake Total 200 / 200 649 / 649 Output Total 225 / 225 325 / 325 Balance -25 / -25 324 / 324 Weight 141.6 kg Consult Discharge Plan - Plan Referrals: Kacey Salazar [Primary Care Provider] - <Angel Diaz - Last Filed: 07/16/17 14:00> Date of Encounter: 07/16/17 Objective PUL Vital signs: Last Vital Signs Temp 99.1 F 07/16/17 12:00 Pulse 73 07/16/17 13:00 Resp 14 07/16/17 13:00 BP 125/61 07/16/17 13:00 Pulse Ox 92 07/16/17 13:00 Ventilator Settings Ventilator Settings: Ventilator Settings, Last 8 Hours Ventilator Mode VC+ Ventilator Mode VC+ Ventilator Mode VC+ Ventilator Mode VC+ Ventilator Tidal Volume 470 Setting Ventilator Tidal Volume 470 Setting Ventilator Tidal Volume 470 Setting Ventilator Tidal Volume 470 Setting Ventilator Tidal Volume 470 Setting Ventilator Respiratory Rate 20 Setting Ventilator Respiratory Rate 20 Setting Ventilator Respiratory Rate 20 Setting Ventilator Respiratory Rate 20 Setting Ventilator Respiratory Rate 20 Setting Actual Respiratory Rate 20 Actual Respiratory Rate 20 Actual Respiratory Rate 20 Actual Respiratory Rate 20 Actual Respiratory Rate 20 Actual Respiratory Rate 20 Actual Respiratory Rate 20 Actual Respiratory Rate 19 Actual Respiratory Rate 20 Positive End Expiratory 8 Pressure Positive End Expiratory 8 Pressure Positive End Expiratory 8 Pressure Positive End Expiratory 8 Pressure Positive End Expiratory 8 Pressure Positive End Expiratory 8 Pressure Positive End Expiratory 8 Pressure Positive End Expiratory 8 Pressure Positive End Expiratory 8 Pressure Positive End Expiratory 8 Pressure Positive End Expiratory 8 Pressure Peak Inspiratory Airway 29 Pressure Peak Inspiratory Airway 27 Pressure Peak Inspiratory Airway 30 Pressure Peak Inspiratory Airway 26 Pressure Peak Inspiratory Airway 36 Pressure Peak Inspiratory Airway 28 Pressure Peak Inspiratory Airway 29 Pressure Results - Laboratory Findings CBC and BMP: 07/16/17 02:22 07/16/17 02:22 ABG ABG pH 7.36 pH Units (7.32-7.45) 07/16/17 04:07 ABG pCO2 49 mmHg (35-45) H 07/16/17 04:07 ABG pO2 58 mmHg (85-104) L 07/16/17 04:07 ABG O2 Saturation 89 % (95-98) L 07/16/17 04:07 PT/INR, D-dimer PT 11.7 Seconds (9.4-12.1) 07/14/17 18:01 Abnormal lab findings: Abnormal lab results RBC 3.54 M/mcL (4.19-5.50) L 07/16/17 02:22 Hgb 9.7 g/dL (12.9-16.9) L 07/16/17 02:22 Hct 32.0 % (37.5-50.1) L 07/16/17 02:22 MCH 27.4 pg (28.0-33.3) L 07/16/17 02:22 MCHC 30.3 g/dL (31.6-35.5) L 07/16/17 02:22 Neutrophils # 10.3 K/mcL (1.6-8.9) H 07/16/17 02:22 Lymphocytes # 0.3 K/mcL (0.6-4.6) L 07/16/17 02:22 ABG pCO2 49 mmHg (35-45) H 07/16/17 04:07 ABG pO2 58 mmHg (85-104) L 07/16/17 04:07 ABG HCO3 28 mEq/L (21-27) H 07/16/17 04:07 ABG Total CO2 29 mEq/L (20-26) H 07/16/17 04:07 ABG O2 Saturation 89 % (95-98) L 07/16/17 04:07 Potassium 5.0 mEq/L (3.5-4.5) H 07/16/17 02:22 BUN 64 mg/dL (8-26) H D 07/16/17 02:22 Creatinine 5.73 mg/dL (0.72-1.25) H 07/16/17 02:22 Est GFR ( Amer) 12 (> 60) L 07/16/17 02:22 Est GFR (Non-Af Amer) 10 (> 60) L 07/16/17 02:22 Glucose 255 mg/dL (70-99) H 07/16/17 02:22 POC Glucose 308 (58-89) H 07/16/17 11:21 Calculated Osmolality 309 (280-300) H 07/16/17 02:22 Calcium 8.0 mg/dL (8.6-10.8) L 07/16/17 02:22 Troponin I 0.33 ng/mL (0-0.03) H* 07/15/17 08:59 Albumin 2.6 g/dL (3.5-5.0) L 07/14/17 18:01 Globulin 4.5 g/dL (2.4-3.5) H 07/14/17 18:01 Albumin/Globulin Ratio 0.6 (1.1-2.2) L 07/14/17 18:01 Urine Clarity Turbid (Clear) A 07/14/17 17:36 Urine Protein >=300 mg/dL (Neg-Trace) H 07/14/17 17:36 Urine Glucose (UA) 250 mg/dL (Normal) H 07/14/17 17:36 Urine Ketones Trace mg/dL (Negative) H 07/14/17 17:36 Urine Blood Large (Negative) H 07/14/17 17:36 Ur Leukocyte Esterase Moderate (Negative) H 07/14/17 17:36 Urine Microscopic RBC TNTC per hpf (0-3) H 07/14/17 17:36 Urine Microscopic WBC 5-15 per hpf (0-3) H 07/14/17 17:36 Ur Squamous Epith Cells Many per lpf (None-Few) H 07/14/17 17:36 Ur Culture Indicated? YES (NO) A 07/14/17 17:36 - Microbiology Findings Microbiology Findings: Microbiology, Last 48 Hours 07/14/17 18:01 Blood Culture - Preliminary Peripheral Venipuncture No growth. 07/14/17 18:01 Blood Culture - Preliminary Peripheral Venipuncture No growth. 07/14/17 17:36 Urine Culture - Final Urine,Clean Catch No pathogens isolated. 07/14/17 17:36 Sputum Culture - Final Sputum - Clinical Findings Intake & Output: Intake & Output 07/15/17 07/16/17 07/16/17 23:59 07:59 15:59 Intake Total 200 / 200 649 / 649 0 / 0 Output Total 225 / 225 325 / 325 150 / 150 Balance -25 / -25 324 / 324 -150 / -150 Weight 141.6 kg - Attending Attestation I saw the patient with the resident agree with History and Physical exam findings. Labs and Radiology were reviewed Ventilator data were reviewed brought the FIO2 down to 50% LOGISTICS COORDINATOR: Patient is sedated not following commands but when he is off sedation he is awake following commands today NECK : No JVD appreciated Pulmonary : CXR and P/F ratio less than 90 latest gas point towards ARDS secondary to complicated UTI , CXR showed bilateral alveolar infiltrates suggestive of fluid overlaod , ECHO Presreved EF with dilated LA . Cardiac : Hemodynamically stable , will trend troponins ECHO which was done in OR showed preserved EF with some dilated left atrium more points towards non cardiogenic pulmonary edema . Nutrition/GI: Patient started on tube feeds PPI prophylaxis Renal : JAROD on chronic Kideny disease will follow electrolytes according to patient wishes wont agree with aggressive measures like dialysis will do supportive care urine output improving , urine output tapering with increase BUN /Cr will try keep him positive will see UOP increases or not . will send it urine electrolytes to calculate FENA if it more ATN picture will try diuresing him. poor prognosis Heme onc : Labs reviewed eleavated renal function potassium is stable ID : Complicated UTI blood cultures in OR is not growing any organisms , here also cultures are not growing to continue IV broad spectrum antibiotics Endo: Diabetes on insulin Musculo skeletal / skin issues : Leg ulcer has chronic osteomyelitis Disposition : Critically ill Code status: Spoke with two sons who drove from [place] according to patient wishes he wouldnt pursue aggressive measures it was decided will continue current therapy if his blood pressure worsens or kidney function worsen wont pursue with central line access or dialysis will change code status to DNRCCA today spoke with him today if he is not getting better over 24-48 hrs will change to comfort measures only . Will consult palliative care on monday . Family/POA:Son Spent 31 minutes of Critical care .
[2017-07-16] MEDS: Chlorhexidine Rinse 15 ML MOUTHWASH MM SCH ×2 (09:00→21:28)
[2017-07-16] MEDS: Pantoprazole 40 MG VIAL IVP SCH (09:00)
[2017-07-16] MEDS: Furosemide 40 MG/4 ML VIAL IVP SCH (09:00)
[2017-07-16] MEDS: Insulin DETEMIR 100 UNIT/ML X5UNITS SQ SCH ×2 (09:00→21:28)
[2017-07-16] MEDS ORDERED: 0.9 % Sodium Chloride 500 ML IVC ONE (09:38)
--- NOTE | 2017-07-16 17:56 | Electrocardiograph Report ---
[place] [id number] Test Date: 2017-07-14 Pat Name: Harrison Perez Department: 109 Room: [facility] Gender: M Casey Saw Operator: MIKE : 1940 Requested By: Loy Yu Order Number: [id number] Reading MD: Hernando Vanessa MD Measurements Intervals [place] Rate: 73 P: 57 IN: 193 QRS: 73 QRSD: 108 T: 72 QT: 368 QTc: 394 Interpretive Statements SINUS RHYTHM LOW QRS VOLTAGE IN EXTREMITY LEADS Electronically Signed On 07-16-2017 17:55:07 EDT by Hernando Vanessa MD
[2017-07-17 00:50] LABS: Basophils % 0.1 %; Hematocrit 32.5 % (37.5-50.1); Hemoglobin 9.8 g/dL (12.9-16.9); Immature Granulocytes % 1.8 % (0-4); Immature Platelets 4.4 % (1.1-6.1); Lymphocytes # 1.5 K/mcL (0.6-4.6); Lymphocytes % 13.8 %; Mean Corpuscular HGB Conc 30.2 g/dL (31.6-35.5); Mean Corpuscular Hemoglobin 27.4 pg (28.0-33.3); Mean Corpuscular Volume 90.8 fL (83.0-100.0); Mean Platelet Volume 10.6 fL (9.4-12.4); Monocytes % 9.6 %; Neutrophils # 7.9 K/mcL (1.6-8.9); Platelet Count 195 K/mcL (140-400); Red Blood Count 3.58 M/mcL (4.19-5.50); Red Cell Distribution Width 14.9 % (11.5-14.5); Segmented Neutrophils % 74.7 %
[2017-07-17] MEDS: Insulin LISPRO 300 UNITS/3 ML VIAL SQ SCH ×4 (00:52→11:35)
[2017-07-17 01:06] LABS: Potassium 6.2 mEq/L (3.5-4.5)
[2017-07-17] MEDS: Ipratropium/Albuterol Neb 3 ML IH SCH ×4 (03:17→16:15)
[2017-07-17] MEDS: Lacri-Lube 3.5 GM TUBE BOTH EYES SCH ×5 (04:26→17:34)
[2017-07-17] MEDS ORDERED: Calcium Gluconate 2,000 MG in D5% in Water 100 ML IVPB ONE (04:50)
[2017-07-17 05:05] LABS: ABG Base Excess 1.4 mEq/L (-2.0 to 3.0); ABG HCO3 29 mEq/L (21-27); ABG Oxygen Saturation 92 % (95-98); ABG PCO2 60 mmHg (35-45); ABG PH 7.29 pH Units (7.32-7.45); ABG PO2 70 mmHg (85-104); ABG TCO2 31 mEq/L (20-26); Blood Gas Modality VCT; Blood Gas PEEP 8 cm H2O; Blood Gas Respiration Rate 20; Blood Gas VT 470 cc
[2017-07-17] MEDS: FentaNYL (PF) 1,000 MCG in 0.9 % Sodium Chloride 80 ML IVC SCH ×3 (05:08→16:30)
[2017-07-17] MEDS: Meropenem 500 MG in 0.9 % Sodium Chloride Mini Bag 100 ML IVPB SCH (05:39)
[2017-07-17] MEDS: *HR* Heparin 5,000 UNIT/ML VIAL SQ SCH ×2 (05:40→13:31)
--- NOTE | 2017-07-17 07:00 | Pulmonology Progress Note ---
<NitinJaspreetSameer W - Last Filed: 07/17/17 10:27> Date of Encounter: 07/17/17 Objective PUL Vital signs: Last Vital Signs Temp 97.8 F 07/17/17 07:48 Pulse 78 07/17/17 08:00 Resp 20 07/17/17 08:00 BP 138/70 07/17/17 08:00 Pulse Ox 95 07/17/17 08:00 Ventilator Settings Ventilator Settings: Ventilator Settings, Last 8 Hours Ventilator Mode VC+ Ventilator Mode VC+ Ventilator Mode VC+ Ventilator Mode VC+ Ventilator Mode VC+ Ventilator Mode VC+ Ventilator Mode VC+ Ventilator Mode A/C Ventilator Mode VC+ Ventilator Mode A/C Ventilator Mode A/C Ventilator Tidal Volume 470 Setting Ventilator Tidal Volume 470 Setting Ventilator Tidal Volume 470 Setting Ventilator Tidal Volume 470 Setting Ventilator Tidal Volume 470 Setting Ventilator Tidal Volume 470 Setting Ventilator Tidal Volume 470 Setting Ventilator Tidal Volume 470 Setting Ventilator Tidal Volume 470 Setting Ventilator Tidal Volume 470 Setting Ventilator Tidal Volume 470 Setting Ventilator Respiratory Rate 20 Setting Ventilator Respiratory Rate 20 Setting Ventilator Respiratory Rate 20 Setting Ventilator Respiratory Rate 20 Setting Ventilator Respiratory Rate 20 Setting Ventilator Respiratory Rate 20 Setting Ventilator Respiratory Rate 20 Setting Ventilator Respiratory Rate 20 Setting Ventilator Respiratory Rate 20 Setting Ventilator Respiratory Rate 20 Setting Ventilator Respiratory Rate 20 Setting Actual Respiratory Rate 20 Actual Respiratory Rate 20 Actual Respiratory Rate 20 Actual Respiratory Rate 20 Actual Respiratory Rate 20 Actual Respiratory Rate 20 Actual Respiratory Rate 20 Actual Respiratory Rate 20 Actual Respiratory Rate 20 Actual Respiratory Rate 20 Positive End Expiratory 8 Pressure Positive End Expiratory 8 Pressure Positive End Expiratory 8 Pressure Positive End Expiratory 8 Pressure Positive End Expiratory 8 Pressure Positive End Expiratory 8 Pressure Positive End Expiratory 8 Pressure Positive End Expiratory 8 Pressure Positive End Expiratory 8 Pressure Positive End Expiratory 8 Pressure Positive End Expiratory 8 Pressure Peak Inspiratory Airway 36 Pressure Peak Inspiratory Airway 30 Pressure Peak Inspiratory Airway 30 Pressure Peak Inspiratory Airway 30 Pressure Peak Inspiratory Airway 33 Pressure Peak Inspiratory Airway 32 Pressure Peak Inspiratory Airway 29 Pressure Peak Inspiratory Airway 30 Pressure Peak Inspiratory Airway 30 Pressure Peak Inspiratory Airway 29 Pressure Results - Laboratory Findings CBC and BMP: 07/17/17 00:41 07/17/17 08:35 ABG ABG pH 7.29 pH Units (7.32-7.45) L 07/17/17 04:53 ABG pCO2 60 mmHg (35-45) H 07/17/17 04:53 ABG pO2 70 mmHg (85-104) L 07/17/17 04:53 ABG O2 Saturation 92 % (95-98) L 07/17/17 04:53 PT/INR, D-dimer PT 11.7 Seconds (9.4-12.1) 07/14/17 18:01 Abnormal lab findings: Abnormal lab results RBC 3.58 M/mcL (4.19-5.50) L 07/17/17 00:41 Hgb 9.8 g/dL (12.9-16.9) L 07/17/17 00:41 Hct 32.5 % (37.5-50.1) L 07/17/17 00:41 MCH 27.4 pg (28.0-33.3) L 07/17/17 00:41 MCHC 30.2 g/dL (31.6-35.5) L 07/17/17 00:41 RDW 14.9 % (11.5-14.5) H 07/17/17 00:41 ABG pH 7.29 pH Units (7.32-7.45) L 07/17/17 04:53 ABG pCO2 60 mmHg (35-45) H 07/17/17 04:53 ABG pO2 70 mmHg (85-104) L 07/17/17 04:53 ABG HCO3 29 mEq/L (21-27) H 07/17/17 04:53 ABG Total CO2 31 mEq/L (20-26) H 07/17/17 04:53 ABG O2 Saturation 92 % (95-98) L 07/17/17 04:53 Potassium 5.9 mEq/L (3.5-4.5) H 07/17/17 08:35 BUN 93 mg/dL (8-26) H 07/17/17 08:35 Creatinine 6.39 mg/dL (0.72-1.25) H 07/17/17 08:35 Est GFR ( Amer) 10 (> 60) L 07/17/17 08:35 Est GFR (Non-Af Amer) 9 (> 60) L 07/17/17 08:35 Glucose 208 mg/dL (70-99) H 07/17/17 08:35 POC Glucose 189 (58-89) H 07/17/17 07:25 Calculated Osmolality 321 (280-300) H 07/17/17 08:35 Calcium 8.2 mg/dL (8.6-10.8) L 07/17/17 08:35 Troponin I 0.33 ng/mL (0-0.03) H* 07/15/17 08:59 Albumin 2.6 g/dL (3.5-5.0) L 07/14/17 18:01 Globulin 4.5 g/dL (2.4-3.5) H 07/14/17 18:01 Albumin/Globulin Ratio 0.6 (1.1-2.2) L 07/14/17 18:01 Urine Clarity Turbid (Clear) A 07/14/17 17:36 Urine Protein >=300 mg/dL (Neg-Trace) H 07/14/17 17:36 Urine Glucose (UA) 250 mg/dL (Normal) H 07/14/17 17:36 Urine Ketones Trace mg/dL (Negative) H 07/14/17 17:36 Urine Blood Large (Negative) H 07/14/17 17:36 Ur Leukocyte Esterase Moderate (Negative) H 07/14/17 17:36 Urine Microscopic RBC TNTC per hpf (0-3) H 07/14/17 17:36 Urine Microscopic WBC 5-15 per hpf (0-3) H 07/14/17 17:36 Ur Squamous Epith Cells Many per lpf (None-Few) H 07/14/17 17:36 Ur Culture Indicated? YES (NO) A 07/14/17 17:36 - Microbiology Findings Microbiology Findings: Microbiology, Last 48 Hours 07/14/17 18:01 Blood Culture - Preliminary Peripheral Venipuncture No growth. 07/14/17 18:01 Blood Culture - Preliminary Peripheral Venipuncture No growth. 07/14/17 17:36 Urine Culture - Final Urine,Clean Catch No pathogens isolated. - Clinical Findings Intake & Output: Intake & Output 07/16/17 07/17/17 07/17/17 23:59 07:59 15:59 Intake Total 1199 / 1199 733 / 733 217 / 217 Output Total 300 / 300 400 / 400 Balance 899 / 899 333 / 333 217 / 217 Weight 131.4 kg Consult Discharge Plan - Plan Referrals: Kacey Salazar [Primary Care Provider] - - Attending Attestation I examined this patient and my medical decision-making was reviewed with the Resident Physician. I agree with the documented findings, disposition and treatment plan as described except to the extent set forth below. We independently had [id number] contact with the patient Patient seen and examined at bedside Labs, radiology, chart personally reviewed. Management was reviewed during multidisciplinary critical care rounds. Neuropsych: Pulm: Acute Hypoxic Respiratory Failure likely component of cardiogenic and non cardiogenic Pulmonary Edema.. Cont LTV per [employer] with permissive hypercapnia. Cards: History of HFpEF holding Diuresis FEN-GI: Cont Enteral Nutrition Renal: JAROD on CKD hyperkalemia cont keayexlate. 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 History of Chronic Osteomyelitis. Doubt current infection Lines: All lines examined without evidence of infection including: Dispo: Remain in ICU today CODE: Son is POJoss. Palliative Care consulted overall poor prognosis. <Blu Carlson - Last Filed: 07/17/17 11:38> Date of Encounter: 07/17/17 Time of Encounter: 08:46 Assessment and Plan (1) Acute and chronic respiratory failure with hypercapnia Current Visit: Yes Status: Acute Secondary to bilateral pleural effusion and pulmonary edema in setting of sepsis Will keep patient intubated and sedated on Fentanyl and Versed drips Plan to increase tidal volume as he has worsening hypercapnia and more acidotic Consult palliative care as patient's son/guardian did not wish for any aggressive measures including CVC or dialysis (2) Acute worsening of stage 4 chronic kidney disease Current Visit: Yes Status: Acute Creatinine continues to elevate, up to 6.39 from 5.73 yesterday He certainly needs dialysis, but he has expressed his desire to not have it Continue to monitor I/O's, avoid nephrotoxic agents; Lasix on hold for now (3) Sepsis Current Visit: Yes Status: Suspected Although he presented with suspected sepsis, he does not meet any SIRS criteria and blood cultures negative here and at the [place] Will discontinue both Vanc and Meropenem as there is no indication of MRSA or ESBL Qualifiers: Qualified Code(s): A41.9 - Sepsis, unspecified organism (4) Hyperkalemia Current Visit: Yes Status: Acute Potassium slightly better after Kayexalate was given overnight, down to 5.9 from 6.2 Will give another dose of 30 mg Kayexalate as he did not have any observed bowel movements and recheck levels in the PM (5) Insulin dependent diabetes mellitus Current Visit: No Status: Chronic POC glucose checks significantly improved after increasing basal insulin dose back to home dose Continue with high dose SSI q4hr accuchecks (6) Diastolic CHF Current Visit: Yes Status: Chronic [facility], patient did have echo which demonstrated preserved EF Will monitor I/O's as above Qualifiers: Congestive heart failure chronicity: acute on chronic Qualified Code(s): I50.33 - Acute on chronic diastolic (congestive) heart failure (7) Osteomyelitis Current Visit: Yes Status: Chronic No signs of systemic infection upon presentation Discontinued antibiotics as above Qualifiers: Osteomyelitis type: unspecified type Osteomyelitis location: unspecified site Qualified Code(s): M86.9 - Osteomyelitis, unspecified (8) DVT prophylaxis Current Visit: Yes Status: Acute Heparin 5000 units TID Subjective Principal diagnosis: Acute + Chronic Respiratory Failure Interval history: Pt seen and examined. He is intubated and sedated on fentanyl and versed. He does wake up when aroused and does respond to commands by wiggling toes and squeezing fingers. Nurse reported that he had hyperkalemia and was given Kayexalate. Objective PUL Vital signs: Last Vital Signs Temp 98.9 F 07/17/17 04:00 Pulse 82 07/17/17 06:00 Resp 20 07/17/17 06:00 BP 139/68 07/17/17 06:00 Pulse Ox 92 07/17/17 06:00 General appearance: no acute distress, alert Eyes: nonicteric ENT: oropharynx moist Neck: supple Effort: normal Auscultation: bilateral: diminished breath sounds Percussion: bilateral: not dull Tactile fremitus: bilateral: normal Cardiovascular: regular rate and rhythm Gastrointestinal: normoactive bowel sounds, non-distended Integumentary: normal Extremities: no cyanosis, no clubbing, edema (2+) Musculoskeletal: no deformities, ROM normal unable to assess due to mental status anxious Ventilator Settings Ventilator Settings: Ventilator Settings, Last 8 Hours Ventilator Mode VC+ Ventilator Mode VC+ Ventilator Mode VC+ Ventilator Mode VC+ Ventilator Mode A/C Ventilator Mode VC+ Ventilator Mode A/C Ventilator Mode A/C Ventilator Mode A/C Ventilator Mode A/C Ventilator Mode A/C Ventilator Mode A/C Ventilator Tidal Volume 470 Setting Ventilator Tidal Volume 470 Setting Ventilator Tidal Volume 470 Setting Ventilator Tidal Volume 470 Setting Ventilator Tidal Volume 470 Setting Ventilator Tidal Volume 470 Setting Ventilator Tidal Volume 470 Setting Ventilator Tidal Volume 470 Setting Ventilator Tidal Volume 470 Setting Ventilator Tidal Volume 470 Setting Ventilator Tidal Volume 470 Setting Ventilator Tidal Volume 470 Setting Ventilator Respiratory Rate 20 Setting Ventilator Respiratory Rate 20 Setting Ventilator Respiratory Rate 20 Setting Ventilator Respiratory Rate 20 Setting Ventilator Respiratory Rate 20 Setting Ventilator Respiratory Rate 20 Setting Ventilator Respiratory Rate 20 Setting Ventilator Respiratory Rate 20 Setting Ventilator Respiratory Rate 20 Setting Ventilator Respiratory Rate 20 Setting Ventilator Respiratory Rate 20 Setting Ventilator Respiratory Rate 20 Setting Actual Respiratory Rate 20 Actual Respiratory Rate 20 Actual Respiratory Rate 20 Actual Respiratory Rate 20 Actual Respiratory Rate 20 Actual Respiratory Rate 20 Actual Respiratory Rate 20 Actual Respiratory Rate 20 Actual Respiratory Rate 20 Actual Respiratory Rate 20 Actual Respiratory Rate 20 Positive End Expiratory 8 Pressure Positive End Expiratory 8 Pressure Positive End Expiratory 8 Pressure Positive End Expiratory 8 Pressure Positive End Expiratory 8 Pressure Positive End Expiratory 8 Pressure Positive End Expiratory 8 Pressure Positive End Expiratory 8 Pressure Positive End Expiratory 8 Pressure Positive End Expiratory 8 Pressure Positive End Expiratory 8 Pressure Positive End Expiratory 8 Pressure Peak Inspiratory Airway 30 Pressure Peak Inspiratory Airway 33 Pressure Peak Inspiratory Airway 32 Pressure Peak Inspiratory Airway 29 Pressure Peak Inspiratory Airway 30 Pressure Peak Inspiratory Airway 30 Pressure Peak Inspiratory Airway 29 Pressure Peak Inspiratory Airway 33 Pressure Peak Inspiratory Airway 30 Pressure Peak Inspiratory Airway 32 Pressure Peak Inspiratory Airway 30 Pressure Results - Laboratory Findings CBC and BMP: 07/17/17 00:41 07/17/17 08:35 ABG ABG pH 7.29 pH Units (7.32-7.45) L 07/17/17 04:53 ABG pCO2 60 mmHg (35-45) H 07/17/17 04:53 ABG pO2 70 mmHg (85-104) L 07/17/17 04:53 ABG O2 Saturation 92 % (95-98) L 07/17/17 04:53 PT/INR, D-dimer PT 11.7 Seconds (9.4-12.1) 07/14/17 18:01 Abnormal lab findings: Abnormal lab results RBC 3.58 M/mcL (4.19-5.50) L 07/17/17 00:41 Hgb 9.8 g/dL (12.9-16.9) L 07/17/17 00:41 Hct 32.5 % (37.5-50.1) L 07/17/17 00:41 MCH 27.4 pg (28.0-33.3) L 07/17/17 00:41 MCHC 30.2 g/dL (31.6-35.5) L 07/17/17 00:41 RDW 14.9 % (11.5-14.5) H 07/17/17 00:41 ABG pH 7.29 pH Units (7.32-7.45) L 07/17/17 04:53 ABG pCO2 60 mmHg (35-45) H 07/17/17 04:53 ABG pO2 70 mmHg (85-104) L 07/17/17 04:53 ABG HCO3 29 mEq/L (21-27) H 07/17/17 04:53 ABG Total CO2 31 mEq/L (20-26) H 07/17/17 04:53 ABG O2 Saturation 92 % (95-98) L 07/17/17 04:53 Potassium 6.2 mEq/L (3.5-4.5) H D 07/17/17 00:41 BUN 88 mg/dL (8-26) H D 07/17/17 00:41 Creatinine 6.29 mg/dL (0.72-1.25) H 07/17/17 00:41 Est GFR ( Amer) 11 (> 60) L 07/17/17 00:41 Est GFR (Non-Af Amer) 9 (> 60) L 07/17/17 00:41 Glucose 202 mg/dL (70-99) H 07/17/17 00:41 POC Glucose 167 (58-89) H 07/17/17 04:17 Calculated Osmolality 319 (280-300) H 07/17/17 00:41 Calcium 8.0 mg/dL (8.6-10.8) L 07/17/17 00:41 Troponin I 0.33 ng/mL (0-0.03) H* 07/15/17 08:59 Albumin 2.6 g/dL (3.5-5.0) L 07/14/17 18:01 Globulin 4.5 g/dL (2.4-3.5) H 07/14/17 18:01 Albumin/Globulin Ratio 0.6 (1.1-2.2) L 07/14/17 18:01 Urine Clarity Turbid (Clear) A 07/14/17 17:36 Urine Protein >=300 mg/dL (Neg-Trace) H 07/14/17 17:36 Urine Glucose (UA) 250 mg/dL (Normal) H 07/14/17 17:36 Urine Ketones Trace mg/dL (Negative) H 07/14/17 17:36 Urine Blood Large (Negative) H 07/14/17 17:36 Ur Leukocyte Esterase Moderate (Negative) H 07/14/17 17:36 Urine Microscopic RBC TNTC per hpf (0-3) H 07/14/17 17:36 Urine Microscopic WBC 5-15 per hpf (0-3) H 07/14/17 17:36 Ur Squamous Epith Cells Many per lpf (None-Few) H 07/14/17 17:36 Ur Culture Indicated? YES (NO) A 07/14/17 17:36 - Microbiology Findings Microbiology Findings: Microbiology, Last 48 Hours 07/14/17 18:01 Blood Culture - Preliminary Peripheral Venipuncture No growth. 07/14/17 18:01 Blood Culture - Preliminary Peripheral Venipuncture No growth. 07/14/17 17:36 Urine Culture - Final Urine,Clean Catch No pathogens isolated. - Clinical Findings Intake & Output: Intake & Output 07/16/17 07/16/17 07/17/17 15:59 23:59 07:59 Intake Total 200 / 200 1199 / 1199 733 / 733 Output Total 150 / 150 300 / 300 350 / 350 Balance 50 / 50 899 / 899 383 / 383 Weight 131.4 kg
[2017-07-17 09:16] LABS: Calcium 8.2 mg/dL (8.6-10.8); Potassium 5.9 mEq/L (3.5-4.5)
[2017-07-17] MEDS: Insulin DETEMIR 100 UNIT/ML X5UNITS SQ SCH (09:45)
[2017-07-17] MEDS: Pantoprazole 40 MG VIAL IVP SCH (09:45)
[2017-07-17] MEDS: Chlorhexidine Rinse 15 ML MOUTHWASH MM SCH (09:45)
--- NOTE | 2017-07-17 13:38 | Palliative - Consult Note ---
Date of Encounter: 07/17/17 Time of Encounter: 11:00 - Assessment and Plan (1) Acute and chronic respiratory failure with hypercapnia Current Visit: Yes Status: Acute Assessment and plan: Not weaning well from the vent, however Frances states the patient would not wish to be intubated in the first place, therefore withdrawal care is being considered. The patient survives this he will go to the [place]. (2) Goals of care, counseling/discussion Current Visit: Yes Status: Acute Assessment and plan: Long discussion with both of the patient's sons, son Edgard is the medical power of finish cleaner. Of sons agreed to changing CODE STATUS to comfort care once family is here for all of care will be undertaken late this afternoon or early this evening. If the patient survives initial trial of care will be transferred out to a either to 55 or 45. Care of the hospitalist group and then transition to the [place] when practicable. He was transferred to the [facility] from the [place] and should be a little back to the [facility] with hospice. (3) Acute worsening of stage 4 chronic kidney disease Current Visit: Yes Status: Acute Assessment and plan: Worsening kidney function patient absolute does not wish to have any dialysis done. [place] of kidney disease as well as acute respiratory failure certainly qualifies the patient for hospice. Palliative-CN HPI - Data of Consult Patient: new to practice Requesting Physician: Sameer Taveras MD Primary Care Provider: Kacey Salazar - Consult Narrative Palliative Care/Comfort Measures: Palliative care History of present illness: Mr. Perez is a 76 year old male Initially admitted to the hospital with acute on chronic respiratory failure sepsis pyelonephritis and a history of chronic osteomyelitis. Since admission from the [place] continue to be hypercapnic and ventilated he is done poorly and consequently care was consulted regarding the role of care and comfort care measures only. She has done poorly with trying to wean off the ventilator and his kidney function is definitely getting worse. Family states he would not want be stepped on the ventilator normal he want dialysis. They are asking for comfort measures only at this time. She does not appear to be in any distress at this time, both sons are at bedside. All history is obtained from them and the old records. Clear from discussion with post sons that the patient would not want to have this level of care done given his overall condition that is why palliative care was consulted. The patient does not appear to be in any distress at this time. CC: Sameer Taveras MD Respiratory, renal failure Past Med Surg Social Fam HX - Past Medical History Medical history: diabetes, GI bleed, hyperlipidemia, hypertension Psychiatric history: no psych history - Past Surgical History Surgical History: cholecystectomy - Social History Smoking Status: Former smoker Smokeless Tobacco Status: No Alcohol use: none Drug use: none Medications and Allergies Diltiazem HCl [Diltiazem 24Hr ER] 300 mg PO DAILY 09/02/16 [History] Furosemide [Lasix] 20 mg PO DAILY 09/02/16 [History] Insulin ASPART [Novolog Flexpen] 24 unit SQ TIDAC 09/02/16 [History] Insulin Glargine,Hum.rec.anlog [Lantus Solostar] 42 unit SQ BID 09/02/16 [ History] Isosorbide MONOnitrate (24 HR) [Imdur] 15 mg PO DAILY 09/02/16 [History] L. Acidophilus/Pectin, [place] [Acidophilus Probiotic Capsule] 1 cap PO BID 09/02 [History] Metoprolol XL (24 HR) Succ [Toprol Xl] 25 mg PO DAILY 09/02/16 [History] Omeprazole [PriLOSEC] 20 mg PO DAILY 09/02/16 [History] Pravastatin Sodium [Pravachol] 40 mg PO HS 09/02/16 [History] Sertraline [Zoloft] 150 mg PO QAM 09/02/16 [History] Terazosin HCl 2 mg PO DAILY 09/02/16 [History] hydrALAZINE [HydrALAZINE] 20 mg PO TID 09/02/16 [History] Albuterol Sulfate [Albuterol Inhaler] 2 puff IH Q4H PRN 07/14/17 [History] Budesonide/Formoterol 160/4.5 [Symbicort 160/4.5] 1 puff IH BIDR 07/14/17 [ History] Carbamide Peroxide [Ear Drops] 2 drop BOTH EARS BID 07/14/17 [History] Doxycycline Monohydrate [Mondoxyne Nl] 100 mg PO BID 07/14/17 [History] Heparin 5,000 unit SQ Q12HR 07/14/17 [History] Ipratropium/Albuterol Neb [Duoneb] 3 ml IH Q6H 07/14/17 [History] Melatonin [Melatin] 6 mg PO HS PRN 07/14/17 [History] 3 Allergy/AdvReac Type Severity Reaction Status Date / Time gabapentin Allergy See Verified 09/02/16 11:32 Comments linezolid Allergy See Verified 09/02/16 11:32 Comments ROS unobtainable: due to mental status Palliative Care-Exam - Constitutional Vitals: Temp Pulse Resp BP Pulse Ox 98.4 F 83 20 135/72 91 07/17/17 11:45 07/17/17 13:00 07/17/17 13:00 07/17/17 13:00 07/17/17 13:00 General appearance: Present: no acute distress - Head Head Exam: Present: atraumatic - Eye Eye exam: Present: normal appearance - ENT ENT exam: Present: mucous membranes moist - Respiratory Respiratory exam: Present: decreased breath sounds, rhonchi - Cardiovascular Cardiovascular exam: Present: RRR - GI/Abdominal Exam GI/Abdominal exam: Present: diminished bowel sounds, soft. Absent: tenderness - Catheter Type: Urethral (Domínguez) - Neurological Exam Neurological exam: Present: altered (Sedated on vent) - Psychiatric Psychiatric exam: Absent: agitated, anxious - Skin Skin exam: Present: dry, warm Internal Medicine - CN: Reslt - Labs CBC & Chem 7: 07/17/17 00:41 07/17/17 08:35 Labs: Short CBC 07/17/17 Range/Units 00:41 WBC 10.5 (4.3-11.1) K/mcL Hgb 9.8 L (12.9-16.9) g/dL Hct 32.5 L (37.5-50.1) % Plt Count 195 (140-400) K/mcL Neutrophils # 7.9 (1.6-8.9) K/mcL BMP 07/17/17 07/17/17 00:41 08:35 Sodium 138 138 Potassium 6.2 H D 5.9 H Chloride 105 104 Carbon Dioxide 22 22 BUN 88 H D 93 H Creatinine 6.29 H 6.39 H Glucose 202 H 208 H Calcium 8.0 L 8.2 L - ABG Interpretation ABG results: ABG ABG pH 7.29 pH Units (7.32-7.45) L 07/17/17 04:53 ABG pCO2 60 mmHg (35-45) H 07/17/17 04:53 ABG pO2 70 mmHg (85-104) L 07/17/17 04:53 ABG O2 Saturation 92 % (95-98) L 07/17/17 04:53 PT/INR, D-dimer PT 11.7 Seconds (9.4-12.1) 07/14/17 18:01 Consult Discharge Plan - Plan Referrals: Kacey Salazar [Primary Care Provider] - Palliative Quality Palliative Quality: Screen for Code Status: Yes, Screen for Goals of Care: Yes, Screen for Pain: Yes, If Pain Regimen Started, Initiate Bowel Regimen: NA, Screen for Nausea/Vomitting: Yes Code Status: 07/15/17 07:23 CODE [Resuscitation Status: Active] [RES] Routine Comment: Resuscitation Status: Full Code CODE [Resuscitation Status: Active] [RES] Routine Comment: Verbally confirmed w/ son/guardEdgard [id number] Resuscitation Status: DNR-Comfort Care-Arrest
[2017-07-17] MEDS ORDERED: *HR* HYDROmorphone (PF) 1 MG/ML SYRINGE IVP PRN (14:52)
[2017-07-17] MEDS ORDERED: *HR* LORazepam 2 MG/ML VIAL IVP PRN (14:52)
[2017-07-17] MEDS ORDERED: Haloperidol Lactate 5 MG/ML VIAL IVP PRN (14:52)
[2017-07-17] MEDS ORDERED: Insulin LISPRO 300 UNITS/3 ML VIAL SQ SCH (14:54)
[2017-07-17 18:20] VITALS: BP 160/68
[2017-07-17] MEDS ORDERED: Aminoglycoside Consult 1 EACH MC ONE (19:55)
--- NOTE | 2017-07-19 13:31 | Death Note ---
<Blu Carlson - Last Filed: 07/19/17 13:34> Discharge Sum: Summary - Date and Time Date of admission: 07/14/17 17:05 Date of : 07/17/17 Time of : 18:28 - Summary Details: Mr. Perez was initially transferred form [facility] with acute on chronic respiratory failure secondary to bilateral pleural effusion and pulmonary edema in setting of sepsis due to UTI and chronic osteomyelitis. He presented already intubated and sedated. He was starte don Vancomycin, Zosyn, and Meropenem was added due to concern of possible ESBL UTI. Unfortunately, his kidneys progressively worsened during his stay in the ICU as he had little UOP and had electrolyte abnormalities including having a potassium of 6.2. He required dialysis, however his son Edgard who was his medical power of corporate associate attorney knew that his father did not want any aggressive measures done including DNR and dialysis , so nephrology was not consulted. Another son of the patient did arrive on 07/17 and the decision was made to terminally extubate as patient was continuing to decline in terms of his kidneys and not meeting extubation parameters. He was extubated around 6 PM on 07/17 and passed shortly thereafter with confirmed time of around 1827. - Additional Data Confirmation of as documented by pronouncing clinician: no pulse, no respirations, no heart sounds, pupils fixed and dilated Family: at bedside Attending/PCP notified?: Yes Attending physician: Sameer Taveras MD Was code activated?: No Autopsy requested?: No greige goods examiner notified?: No Organ bank notified?: Yes Advance directives: Yes Hospice patient?: No Discharge Sum: Diag - PCOD Probable Cause of : Respiratory arrest Discharge Sum: Prov - Provider Primary care physician: Kacey Salazar Admitting clinician: Sameer Taveras Attending physician on admission: Sameer Taveras Consults: 07/15/17 11:14 Consult to Nutrition [CONS] Routine Comment: Consulting Provider: NUTRITION Reason for Dietary Consult: TF Start and Manage 07/17/17 11:18 Consult to Palliative Care [CONS] Routine Comment: Consulting Provider: Palliative Care Manda Reason for Consult: discuss goals of care, family leaning on withdrawal of care Time Notified: 11:19 Call Completed: Yes Pronouncing clinician: Blu Carlson <Sameer Taveras - Last Filed: 07/19/17 14:33> Discharge Sum: Summary - Date and Time Date of admission: 07/14/17 17:05 - Additional Data Attending physician: Sameer Taveras MD Discharge Sum: Prov - Provider Primary care physician: Kacey Salazar Consults: 07/15/17 11:14 Consult to Nutrition [CONS] Routine Comment: Consulting Provider: NUTRITION Reason for Dietary Consult: TF Start and Manage 07/17/17 11:18 Consult to Palliative Care [CONS] Routine Comment: Consulting Provider: Palliative Care Manda Reason for Consult: discuss goals of care, family leaning on withdrawal of care Time Notified: 11:19 Call Completed: Yes - Attending Attestation I examined this patient and my medical decision-making was reviewed with the Resident Physician. I agree with the documented findings, disposition and treatment plan as described except to the extent set forth below.
== END 2017-07-17 19:56 | disposition expired | DRG 871 ==
LOC: SUATTDRO 17:05 → ICNU 17:05
PROVIDERS: ADMIT Internal Medicine Pulmonary Disease; ATTEND Internal Medicine Hospice and Palliative Medicine